=== PATIENT | male | born 1950 | race Caucasian/White ===

== ENCOUNTER 2017-11-17 02:02 | Day surgery (SDC) | payer MEDICARE, OTHER ==
[~2017-11-17] VITALS: Ht 175.3 cm; Wt 80.7 kg
[~2017-11-17 02:02] MED LIST: BACDS PO; DOC100 PO; DOXY-228 PO; IBU600 PO; LEV500 PO; LOR5 PO; PER PO
[2017-11-17] MEDS ORDERED: BETAMETHASONE/ACETATE 6 MG/1ML ONE (06:19)
[2017-11-17] MEDS ORDERED: ROPIVACAINE 0.2% 20 ML VIAL ONE (06:20)
[2017-11-17] MEDS ORDERED: LIDOCAINE MPF 1% 5 ML VIAL ONE ×2 (06:20→06:41)
[2017-11-17 06:35] VITALS: BP 156/85
[2017-11-17] MEDS ORDERED: fentaNYL CITR 250 MCG/5 ML AMP ONE ×2 (06:40)
[2017-11-17] MEDS ORDERED: DEXAMETHASONE SOD PHOS 10MG/ML ONE (06:41)
[2017-11-17] MEDS ORDERED: PROPOFOL EMUL(*) 10MG/ML 20 ML 20 ML ONE (06:41)
[2017-11-17] MEDS ORDERED: KETAMINE HCL 200 MG/20 ML MDV ONE (06:41)
[2017-11-17] MEDS ORDERED: ONDANSETRON 4 MG/2 ML VIAL ONE (06:41)
[2017-11-17] MEDS ORDERED: EPINEPHrine HCL 1 MG/ML AMP ONE (06:43)
[2017-11-17] MEDS ORDERED: ROPIVACAINE 0.5% 20 ML VIAL ONE (06:43)
[2017-11-17] MEDS ORDERED: NS 0.9% 20 ML SDV 20 ML ONE (06:43)
[2017-11-17] MEDS ORDERED: KETOROLAC 30 MG/ML VIAL ONE (08:57)
[2017-11-17] MEDS ORDERED: fentaNYL CITR 100 MCG/2 ML AMP ONE (09:19)
[2017-11-17] MEDS ORDERED: KET10 PO (10:01)
[2017-11-17] MEDS ORDERED: ACET-2146 PO (10:02)
[2017-11-17] MEDS ORDERED: OXYC5CAP21 PO (10:08)
[2017-11-17 10:30] VITALS: BP 118/69
[2017-11-17 10:49] VITALS: BP 118/81
[2017-11-17 10:57] VITALS: BP 141/74
[2017-11-17] MEDS ORDERED: oxyCODONE HCL 5 MG CAP ONE (11:13)
--- NOTE | 2017-11-17 11:21 | OPERATIVE REPORT 1 ---
EVENT DATE: November 17, 2017 SURGEON: Venkat Hurd MD ANESTHESIOLOGIST: Silver Porter M.D. ANESTHESIA: Left femoral nerve block followed by general. TELEPHONE OPERATOR: SERGEI Castillo PREOPERATIVE DIAGNOSIS 1. 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 2. Bilateral plantar fasciitis. POSTOPERATIVE DIAGNOSIS 1. Left knee anterior cruciate ligament (ACL) grade 3 tear, chronic, complex medial and lateral meniscus tear, chondromalacia grade 3 with a central area approximately 15 x 15 mm of grade 4 chondromalacia of the medial femoral condyle, low grade 3 chondromalacia of the central pole and lateral facet of the patella, chondromalacia low grade 3 of the lateral tibial plateau and loose body approximately 10 x 5 mm. 2. Bilateral plantar fasciitis. PROCEDURE PERFORMED 1. Left knee arthroscopy with removal of loose body. 2. Partial medial and lateral meniscectomies. 3. Debridement of chondromalacia of the medial femoral condyle, lateral tibial plateau and patella. 4. Microfracture of medial femoral condyle grade 4 lesion. 5. Anatomic arthroscopic assisted anterior cruciate ligament (ACL) reconstruction with hamstring autograft. 6. Bilateral plantar fascial injections. IMPLANTS USED Raygoza-Nephew 50 mm EndoButton and one IntraFix sheath and 8-10 mm screw. SPECIMENS None. COMPLICATIONS None. ESTIMATED BLOOD LOSS Less than 5 cc. OPERATION The patient was brought to the operating room after receiving appropriate preoperative antibiotics and Dr. Porter performed left femoral nerve block followed by general anesthesia. Left thigh tourniquet was placed. At this point, we then prepped starting with the right foot over the medial aspect of the plantar fascia insertion on the calcaneus at a glabrous/nonglabrous junction. This was prepped in the usual sterile fashion. We injected 1 cc of betamethasone and 1 cc of 1% lidocaine without epi. We then in a similar fashion injected the left plantar fascial insertion. Both of these injections were on the bone and above the plantar fascia to avoid the fat pad. We then prepped and draped the left lower extremity in the usual sterile fashion and exsanguinated. Tourniquet was inflated to 250 mmHg. A 4 cm incision was made 1 cm medial to the tibial tubercle, 3 cm inferior to the tibial plateau. Sharp dissection was carried out at the skin and subcutaneous tissue down to the level of the sartorius fascia, which was then bluntly overmined. We identified the superior border of the gracilis and made a transverse incision in the fascia, bringing this to the tubercle and then proceeding inferiorly to create an L flap. The sartorius fascia was then sharply dissected off the two tendons. I identified the gracilis, sharply released it, tied with 0 Vicryl suture, removed adhesions and harvested with closed-end graft harvester in standard fashion, taken to the back table. In a similar fashion, the semitendinosus was harvested. The human resources assistant then prepped the graft and it turned out to be 9 mm quadrupled. As this was occurring, I established the lateral portal, inserted the scope and then established a far medial portal. The medial compartment was entered. Articular cartilage was intact in the tibial plateau. Meniscus showed a complex tear starting at the mid body to the posterior horn. This was debrided with biters and shaved and now stable to probing. The weightbearing surface of the medial femoral condyle showed a high grade 3 lesion with its central height approximately 15 x 15 mm of grade 4 chondromalacia. This was debrided down to a stable base with shaver and this was microfractured. Medial gutter, suprapatellar pouch and lateral gutter show no obvious loose bodies. Patellofemoral compartment showed intact trochlea cartilage but the patella showed central pole and lateral facet low grade 3 chondromalacia and this was debrided down to stable base with shaver. The lateral compartment was entered. Complex tear from the posterior horn to the mid body was noted and this was debrided with biters and shaved and now stable to probing. The medial and posterior tibial plateaus show chondromalacia grade 3 in area of the meniscal lesion. This was debrided down to stable base with the shaver. The knee was placed at 90 degrees and we noted an empty wall sign. This was debrided with shaver and notchplasty performed with shaver and surface device and bur to create a space and identify the posterior wall. Utilizing the Arthrex transtibial guide, setting this up at 55 degrees, 10 degrees from vertical and central medially in the footprint and just anterior to the posterior aspect of the anterior horn and lateral meniscus, we placed our pin. We then reamed this with a 9 mm reamer, debrided the tunnel with the shaver, dilated to 9 mm. We placed out plug at the inferior medial portal. We placed a 6 mm anatomic femoral offset guide with the knee bent at 90 degrees and marked on the lateral wall at approximately 10 o'clock. We then brought the knee up in hyperflexion, utilizing the previous mavis in the posterior wall. With the 6 mm femoral offset guide through the inferior medial portal, we placed guide pin and dissected laterally through the central portion of the femur. This was then reamed with 9 mm acorn reamer to a depth of 32 mm and then we utilized the EndoButton reamer to ream the lateral cortex. Total tunnel length was 36 mm. We chose a 50 mm EndoButton. I then debrided the tunnel with the shaver, dilated 9 mm, noting the lateral cortex was intact and passed a passing suture. The knee was then placed back in 90 degrees and the graft came in and there were cabral at 36 and 46 mm. We passed the graft to 46 mm with the EndoButton. Distal traction showed to seat appropriately with no toggle at 36 mm. I then tied each of the respective suture ends to itself at 4.5 inches and with minimal traction distally. I cycled the knee from 0 to 90 degrees and there was no gross asymmetry. I then placed the IntraFix tensioner and cycled the knee from 0 to 90 degrees 25 times with 20-25 pounds of tension. I then placed the knee at 5 to 10 degrees of flexion and posterior drawer applied in neutral position. I dilated the tunnel with the IntraFix dilator on the tibial side, placed our sheath and 8-10 mm screw with good purchase. He was able to achieve full extension and full flexion. 30 degree and 90 degrees Rell's and anterior drawer's respectively. I placed the scope in the notch. We noted a loose body and this was removed with a grasper. I evaluated the graft. It had equal tension from 90 to 0 degrees. There was no impingement. Joint and graft harvest site were irrigated and instrumentation removed. 10 cc ropivacaine were injected into the proximal hamstring graft region. We closed the sartorius fascia with 2-0 Vicryl followed by 0 Vicryl for the subcutaneous tissue and 4-0 Monocryl for portals and skin. We applied steri-strips and injected the remaining portion of ropivacaine and placed a compressive dressing and our T- scope brace. The patient was taken to recovery in stable condition after extubation. He will be started on protocol therapy for ACL reconstruction. Dressings can be changed in PT. Tylenol, Toradol and OxyIR are recommended. We will follow up with him in [facility]. DUC
[2017-11-17] MEDS ORDERED: ACETAMINOPHEN 500 MG TAB PO ONE (11:50)
[2017-11-17] MEDS ORDERED: ceFAZolin(*) 2GM/D5W 50ML 50 ML IVPB ONE (13:15)
[2017-11-17] MEDS ORDERED: LIDOCAINE/SOD BICARB 8.4% SYR ID ONE (13:15)
[2017-11-17] MEDS ORDERED: FAMOTIDINE 20 MG TAB PO ONE (13:15)
[2017-11-17] MEDS ORDERED: MIDAZOLAM 2 MG/2 ML VIAL IVP PRN (13:15)
[2017-11-17] MEDS ORDERED: NORMOSOL R SOLN(*) 1000 ML BAG 1,000 ML IV PRN (13:15)
[2017-11-17] MEDS ORDERED: CELECOXIB 200 MG CAP PO ONE (13:15)
== END 2017-11-17 10:30 | disposition home or self-care (01) ==
LOC: OR 02:02
PROVIDERS: ATTEND Orthopaedic Surgery
DX: S83.512A Sprain of anterior cruciate ligament of left knee, initial encounter (principal); M72.2 Plantar fascial fibromatosis
CPT/HCPCS: 29879; 29880; 29888; 76942; 97116; A9270; C1713; J0171; J0702; J1100; J1885; J2001; J2250; J2405; J2704; J2795; J3010; J3490; J7050; J0690